=== PATIENT | male | born 1955 | race Asian ===

== ENCOUNTER 2019-10-18 09:26 | Outpatient (CLI) | payer MEDICAID | END 2019-10-18 23:59 | disposition home or self-care (01) | LOC: CFH 09:26 | PROVIDERS: ATTEND Student in an Organized Health Care Education/Training Program | DX: I08.2 Rheumatic disorders of both aortic and tricuspid valves (principal); I10 Essential (primary) hypertension; E78.5 Hyperlipidemia, unspecified; M46.96 Unspecified inflammatory spondylopathy, lumbar region; Z12.11 Encounter for screening for malignant neoplasm of colon; H35.30 Unspecified macular degeneration; Z87.891 Personal history of nicotine dependence; E83.52 Hypercalcemia | CPT/HCPCS: 93306 ==